=== PATIENT | female | born 2000 | race Hispanic/Latino ===

== ENCOUNTER 2018-07-18 12:41 | Outpatient (CLI) | payer BC ==
--- NOTE | 2018-07-18 17:46 | MRI ---
MRI OF THE LUMBAR SPINE WITHOUT CONTRAST: 07/18/18 HISTORY: Low back pain radiating down her legs. FINDINGS: The vertebral body heights are maintained. There is a focal lesion on the L2 vertebral body with low T1 and high T2 signal. This likely represents an atypical hemangioma. The vertebral disc heights and signal are also maintained. The conus medullaris ends at the L1 level. No focal disc herniation, cent ral canal stenosis or neural foraminal stenosis is seen. The paraspinal musculature is normal. There is edema in the interspinous ligaments at L4-5 and L5-S1 levels consistent with ligamentous tea rs. IMPRESSION: 1. No evidence of disc herniation, central canal or neural foraminal stenosis. 2. Interspinous ligamentous tears at L4-5 and L5-S1 levels. 3. Probable atypical hemangioma involving the vertebral body of L2. A followup exam is recommend ed in six months to document anticipated stability. POS: SYD
== END 2018-07-18 12:42 | disposition home or self-care (01) ==
LOC: SCSMRI 12:41
PROVIDERS: ATTEND Family Medicine
DX: M54.5 Low back pain (principal); S33.5XXA Sprain of ligaments of lumbar spine, initial encounter; S33.9XXA Sprain of unspecified parts of lumbar spine and pelvis, initial encounter
CPT/HCPCS: 72148